=== PATIENT | female | born 2000 | race Hispanic/Latino ===

== ENCOUNTER 2022-06-26 22:34 | Emergency (ER) | payer MEDICAID ==
[~2022-06-26] VITALS: Ht 162.6 cm; Wt 54.4 kg
[2022-06-26] MEDS ORDERED: PENICILLIN V POTASSIUM 500 MG TABLET PO STA (22:47)
[2022-06-26] MEDS ORDERED: HYDR-4060 PO (22:51)
[2022-06-26] MEDS ORDERED: PENI500T2 PO (22:51)
[2022-06-26] MEDS ORDERED: IBUP-2070 PO (22:51)
[2022-06-26 23:00] VITALS: BP 114/76
[2022-06-26] MEDS ORDERED: HYDROCODONE/ACETAMINOPHEN 5/325 MG TAB PO ONE (23:00)
[2022-06-26] MEDS ORDERED: PENICILLIN V POTASSIUM 500 MG TABLET ONE (23:18)
[2022-06-26] MEDS ORDERED: HYDROCODONE/ACETAMINOPHEN 5/325 MG TAB ONE (23:19)
== END 2022-06-26 23:45 | disposition home or self-care (01) ==
LOC: EDH 22:34
DX: K04.7 Periapical abscess without sinus (principal); Z88.1 Allergy status to other antibiotic agents